=== PATIENT | female | born 1990 | race African-American/Black ===

== ENCOUNTER → 2018-02-23 | Outpatient (CLI) | payer BC | LOC: NUC 10:04 | DX: R10.9 Unspecified abdominal pain (principal); R11.0 Nausea; R63.4 Abnormal weight loss ==

== ENCOUNTER → 2021-09-04 | Outpatient (CLI) | payer OTHER | LOC: MRI 08-24 09:59 | PROVIDERS: ATTEND Family Medicine | DX: S46.112S Strain of muscle, fascia and tendon of long head of biceps, left arm, sequela (principal); M25.512 Pain in left shoulder; M77.8 Other enthesopathies, not elsewhere classified; X58.XXXS Exposure to other specified factors, sequela ==